=== PATIENT | male | born 1975 | race African-American/Black ===

== ENCOUNTER 2020-11-15 05:30 | Emergency (ER) | payer MEDICARE ==
[2020-11-15 06:38] LABS: Bilirubin Negative (Negative); Blood, Urine Negative (Negative); Clarity Clear (Clear); Glucose, Urine (Dipstick) Normal (Negative); Ketone, Urine Trace mg/dL (Negative); Leukocyte Negative Leu/uL (Negative); Nitrite Negative (Negative); Protein, Urine (Dipstick) Negative (Neg-Trace); Specific Gravity, Urine 1.027 (1.002-1.036); Urobilinogen Normal mg/dL (Less than 2)
[2020-11-15] MEDS ORDERED: cefTRIAXone\\ROCEPHIN 500 MG VIAL ONE (07:10)
[2020-11-15] MEDS ORDERED: Sterile Water 10 ML ONE (07:11)
[2020-11-15] MEDS ORDERED: Lidocaine 1% PF 5 ML VIAL ONE (07:13)
== END 2020-11-15 07:46 | disposition home or self-care (01) ==
LOC: ERS 05:30
DX: N45.3 Epididymo-orchitis (principal); I10 Essential (primary) hypertension; F17.210 Nicotine dependence, cigarettes, uncomplicated
CPT/HCPCS: 76870; 81003; 93976; 96372; J0696